=== PATIENT | male | born 1960 | race Caucasian/White ===

== ENCOUNTER 2020-06-12 08:15 | Outpatient (REF) | payer OTHER, SELFPAY | END 2020-06-12 08:16 | disposition home or self-care (01) | LOC: HO.BBR 08:15 | PROVIDERS: Visit Provider Pediatrics | DX: E83.119 Hemochromatosis, unspecified (principal) | CPT/HCPCS: 99195 ==

== ENCOUNTER 2020-08-28 08:07 | Outpatient (REF) | payer OTHER, SELFPAY | END 2020-08-28 08:08 | disposition home or self-care (01) | LOC: HO.BBR 08:07 | PROVIDERS: Visit Provider Pediatrics | DX: Z13.89 Encounter for screening for other disorder (principal) ==

== ENCOUNTER 2020-08-28 08:37 | Outpatient (REF) | payer SELFPAY ==
[2020-08-28 09:55] LABS: Cholesterol 208 mg/dL
== END 2020-08-28 08:38 | disposition home or self-care (01) ==
LOC: HO.LNC 08:37
PROVIDERS: Visit Provider Pathology Anatomic Pathology & Clinical Pathology
DX: Z13.89 Encounter for screening for other disorder (principal)
CPT/HCPCS: 36415; 82465

== ENCOUNTER 2020-11-20 08:07 | Outpatient (REF) | payer OTHER, SELFPAY | END 2020-11-20 08:08 | disposition home or self-care (01) | LOC: HO.BBR 08:07 | PROVIDERS: Visit Provider Pediatrics | DX: Z13.89 Encounter for screening for other disorder (principal) ==

== ENCOUNTER 2021-02-11 07:51 | Outpatient (REF) | payer OTHER, SELFPAY | END 2021-02-11 07:52 | disposition home or self-care (01) | LOC: HO.BBR 07:51 | PROVIDERS: Visit Provider Pediatrics | DX: Z13.89 Encounter for screening for other disorder (principal) ==

== ENCOUNTER 2021-04-09 11:50 | Outpatient (REF) | payer OTHER, SELFPAY | END 2021-04-09 11:51 | disposition home or self-care (01) | LOC: HO.BBR 11:50 | PROVIDERS: PCP Pediatrics; Visit Provider Pediatrics | DX: Z13.89 Encounter for screening for other disorder (principal) ==

== ENCOUNTER 2021-05-16 08:02 | Outpatient (REF) | payer OTHER, SELFPAY | END 2021-05-16 08:03 | disposition home or self-care (01) | LOC: HO.BBR 08:02 | PROVIDERS: PCP Pediatrics; Visit Provider Pediatrics | DX: Z13.89 Encounter for screening for other disorder (principal) ==

== ENCOUNTER 2021-08-06 07:58 | Outpatient (REF) | payer OTHER, SELFPAY | END 2021-08-06 07:59 | disposition home or self-care (01) | LOC: HO.BBR 07:58 | PROVIDERS: Visit Provider Pediatrics | DX: Z13.89 Encounter for screening for other disorder (principal) ==

== ENCOUNTER 2022-02-11 09:00 | Outpatient (REF) | payer MEDICAID, SELFPAY | END 2022-02-11 09:01 | disposition home or self-care (01) | LOC: HO.BBR 09:00 | PROVIDERS: Visit Provider Pediatrics | DX: Z13.89 Encounter for screening for other disorder (principal) ==

== ENCOUNTER 2022-05-13 09:00 | Outpatient (REF) | payer MEDICAID, SELFPAY | END 2022-05-13 09:01 | disposition home or self-care (01) | LOC: HO.BBR 09:00 | PROVIDERS: Visit Provider Pediatrics | DX: Z13.89 Encounter for screening for other disorder (principal) ==

== ENCOUNTER 2022-08-14 09:57 | Outpatient (REF) | payer MEDICAID, SELFPAY | END 2022-08-14 09:58 | disposition home or self-care (01) | LOC: HO.BBR 09:57 | PROVIDERS: Visit Provider Pediatrics | DX: Z13.89 Encounter for screening for other disorder (principal) ==